=== PATIENT | male | born 1985 | race Two or more races ===

== ENCOUNTER 2024-09-08 18:13 | Emergency (ER) | payer MEDICAID ==
[~2024-09-08] VITALS: Ht 185.4 cm; Wt 59.0 kg
[2024-09-08 18:38] VITALS: BP 131/94; TEMP 98.4
[2024-09-08] MEDS: predniSONE 20 MG TABLET PO ONE (19:00)
[2024-09-08] MEDS ORDERED: predniSONE 20 MG TABLET ONE (19:08)
[2024-09-08] MEDS ORDERED: PRED50TA PO (19:17)
[2024-09-08] MEDS: IPRATROPIUM NEB FS 0.5 MG/2.5 ML AMPUL.NEB NEB ONE (19:33)
[2024-09-08] MEDS: ALBUTEROL FS 2.5 MG/3 ML VIAL.NEB NEB ONE (19:33)
[2024-09-08] MEDS ORDERED: ALBUTEROL FS 2.5 MG/3 ML VIAL.NEB ONE (19:34)
[2024-09-08] MEDS ORDERED: IPRATROPIUM NEB FS 0.5 MG/2.5 ML AMPUL.NEB ONE (19:35)
[2024-09-08 19:37] VITALS: O2SAT 98
[2024-09-08 19:52] VITALS: O2SAT 99
[2024-09-08] MEDS ORDERED: ALBU18HF2 INH (20:22)
== END 2024-09-08 20:30 | disposition home or self-care (01) ==
LOC: ER 18:13
DX: B34.9 Viral infection, unspecified (principal); J45.901 Unspecified asthma with (acute) exacerbation; Z79.52 Long term (current) use of systemic steroids
CPT/HCPCS: 99283; 94640; J7512